=== PATIENT | male | born 1985 | race Caucasian/White ===

== ENCOUNTER 2017-10-27 17:09 | Emergency (ER) | payer OTHER ==
[~2017-10-27] VITALS: Ht 157.5 cm; Wt 50.0 kg
[2017-10-27 17:09] VITALS: BP 137/77; TEMP 98.9
[2017-10-27] MEDS ORDERED: EFFEXOR XR75 MG/CAP PO (17:30)
[2017-10-27 18:00] LABS: BASO # 0.1 (0.0-0.2); BASO % 1.1 % (0.0-2.0); EOS # 0.6 (0.0-0.7); EOS % 5.5 % (0-4.0); GRAN # 5.5 (1.4-6.5); GRAN % 54.7 % (42.2-75.2); HEMATOCRIT 46.5 % (42.0-52.0); HEMOGLOBIN 15.7 g/dl (13.5-18.0); LYMPH % 30.2 % (20.0-51.0); MEAN CELL VOLUME 92 fl (80.0-100.0); MEAN CORPUSCULAR HEMOGLOBIN 31 pg (27.0-31.0); MEAN CORPUSCULAR HGB CONC 34 g/dl (33.0-37.0); MEAN PLATELET VOLUME 9.6 fl (7.4-10.4); MONO # 0.8 (0.1-0.6); MONO % 8.3 % (1.7-9.3); PLATELET COUNT 319 K/mm3 (130-400); RED BLOOD COUNT 5.03 M/mm3 (4.20-5.60)
[2017-10-27 18:12] LABS: ALBUMIN 4.6 gm/dL (3.5-5.0); BILIRUBIN,TOTAL 0.7 mg/dL (0.0-1.0); CALCIUM 9.2 mg/dL (8.4-10.2); CREATININE, serum 0.93 mg/dL (0.66-1.25); POTASSIUM 4.1 mmol/L (3.4-5.0); TOTAL PROTEIN 8.3 gm/dL (6.4-8.2)
[2017-10-27 18:37] LABS: ERYTHROCYTE SEDIMENTATION RATE 2 mm/hr (0-15)
[2017-10-27 20:15] VITALS: PULSE 79
== END 2017-10-27 20:15 | disposition home or self-care (01) ==
LOC: COL.ER 17:09
PROVIDERS: Family Medicine
DX: H53.2 Diplopia (principal); F17.210 Nicotine dependence, cigarettes, uncomplicated
CPT/HCPCS: A9585

== ENCOUNTER → 2020-06-28 | Outpatient (CLI) | payer OTHER ==
[~2020-06-28] MED LIST: EFFEXOR XR75 MG/CAP PO
== END ==
LOC: ZLAB.ENT 16:09
DX: H65.492 Other chronic nonsuppurative otitis media, left ear (principal)